=== PATIENT | female | born 1975 | race Caucasian/White ===

== ENCOUNTER → 2016-09-01 | Outpatient (CLI) | payer OTHER ==
[~2016-09-01] MED LIST: CLN200 PO; FOLI800T PO; MAGN400T6 PO; METO-157 PO; METO-478 PO; PANT40TA PO; RXC5 PO; TRAM-10 PO
--- NOTE | 2016-09-01 13:27 | MAMMOGRAPHY REPORT ---
BILATERAL DIGITAL SCREENING MAMMOGRAM TOMOSYNTHESIS WITH CAD: 09/01/2016 CLINICAL HISTORY: Routine screening. Patient has no complaints. TECHNIQUE: Breast tomosynthesis in addition to standard 2D mammography was performed. Current study was also evaluated with a Computer Aided Detection (CAD) system. COMPARISON: Comparison is made to exams dated: 09/01/2015 mammogram, 08/29/2014 mammogram, 08/28/2013 m ammogram, 08/21/2012 mammogram, 08/20/2011 mammogram, and 08/18/2010 mammogram - [facility]. BREAST COMPOSITION: The tissue of both breasts is extremely dense, which lowers the sensitivity of m ammography. FINDINGS: There is an 11 mm nodular asymmetry in the anterior slightly inferior left breast, only se en on the MLO view and corresponding tomosynthesis images (slice 26/57). Additional spot compression tomosynthesis views and possibly ultrasound are recommended, although this could represent overlappi ng tissue. No other suspicious mass, architectural distortion or cluster of microcalcifications is seen bilatera lly. IMPRESSION: ACR BI-RADS CATEGORY 0: INCOMPLETE EVALUATION: NEED ADDITIONAL IMAGING EVALUATION The 11 mm nodular asymmetry in the anterior left breast needs additional evaluation. The patient will be called to schedule an appointment. Approximately 10% of breast cancers are not detected with mammography. A negative mammographic report should not delay biopsy if a clinically suggestive mass is present. Rebekah Alonzo M.D. ay/:09/01/2016 12:15:37 Organizational Development Specialist: Ayah EDWARDS(Bekah)(Felipa), [facility] letter sent: Addl Imaging 0 BI-RADS Code: ACR BI-RADS Category 0: Incomplete Evaluation: Need Additional Imaging Evaluation
== END | disposition home or self-care (01) ==
LOC: C.MAMM 09:45
PROVIDERS: ATTEND Obstetrics & Gynecology
DX: Z12.31 Encounter for screening mammogram for malignant neoplasm of breast (principal); N64.89 Other specified disorders of breast

== ENCOUNTER → 2016-09-09 | Outpatient (CLI) | payer OTHER ==
[~2016-09-09] MED LIST changes: -METO-478 PO; +METO1TAB31 PO
--- NOTE | 2016-09-09 13:39 | MAMMOGRAPHY REPORT ---
UNILATERAL LEFT DIGITAL DIAGNOSTIC MAMMOGRAM TOMOSYNTHESIS: 09/09/2016 CLINICAL HISTORY: Callback from screening mammogram for left breast asymmetry. TECHNIQUE: Breast tomosynthesis in addition to standard 2D mammography was performed. Spot compress ion left MLO and ML 2-D and tomosynthesis images were obtained. COMPARISON: Comparison is made to exams dated: 09/01/2016 mammogram, 09/01/2015 mammogram, 08/29/2014 m ammogram, 08/28/2013 mammogram, 08/21/2012 mammogram, and 08/20/2011 mammogram - [facility]. BREAST COMPOSITION: The tissue of the left breast is extremely dense, which lowers the sensitivity o f mammography. FINDINGS: The previously described asymmetry seen within the anterior left breast on the MLO view ef faces to a baseline appearance on the additional views, with appearance of this region similar to mul tiple prior exams including the 2008 exam. This region has the appearance of normal fibroglandular t issue on the tomosynthesis images, without a discrete mammographic mass or architectural distortion n oted. Given the stability to prior exams, this finding is benign and compatible with normal fibrogla ndular tissue. IMPRESSION: ACR BI-RADS CATEGORY 2: BENIGN The left breast asymmetry effaces to a baseline appearance on the additional views, and is benign and compatible with normal fibroglandular tissue. There is no mammographic evidence of malignancy. A 1 year screening mammogram is recommended. The patient has been verbally notified of the results. Approximately 10% of breast cancers are not detected with mammography. A negative mammographic report should not delay biopsy if a clinically suggestive mass is present. Shirin García M.D. /:09/09/2016 11:29:41 Community Relations Director: Cintia EDWARDS(R)(M), [facility] letter sent: Normal 1/2 BI-RADS Code: ACR BI-RADS Category 2: Benign
== END | disposition home or self-care (01) ==
LOC: C.MAMM 11:02
PROVIDERS: ATTEND Obstetrics & Gynecology
DX: N64.89 Other specified disorders of breast (principal); R92.2 Inconclusive mammogram

== ENCOUNTER → 2017-02-25 | Outpatient (CLI) | payer OTHER ==
[~2017-02-25] MED LIST changes: +ETOD500T95 PO; +FOLI1TAB8 PO; +MCRK/10 PO; +METH2.5T PO; +METO-478 PO; -METO1TAB31 PO; +OMEP40CA41 PO; +ONDA4TAB46 PO; +TPRSR/25 PO
[2017-02-25 15:51] LABS: ALT/SGPT 20 U/L (12-78); BLOOD UREA NITROGEN 19 mg/dl (7-18); BUN/CREATININE RATIO 22.2 (10-20); CALCIUM 8.9 mg/dl (8.5-10.1); CARBON DIOXIDE 26 mmol/L (21-32); CHLORIDE 105 mmol/L (98-107); CHOLESTEROL 181 mg/dl (0-200); CREATININE 0.87 mg/dl (0.60-1.20); GLUCOSE 81 mg/dl (70-99); POTASSIUM 4.1 mmol/L (3.5-5.1); SODIUM 138 mmol/L (136-145); TRIGLYCERIDES 75 mg/dl (0-150); VERY LOW DENSITY LIPOPROT CALC 15 mg/dl
[2017-02-25 15:54] LABS: ALKALINE PHOSPHATASE 55 U/L (45-117); AST/SGOT 13 U/L (15-37); CHOLESTEROL/HDL RATIO 2.7; HDL CHOLESTEROL 66 mg/dl; LDL CHOLESTEROL CALCULATED 100 mg/dl
== END | disposition home or self-care (01) ==
LOC: C.LAB1850 14:35
PROVIDERS: ATTEND Physician Assistant
DX: Z13.220 Encounter for screening for lipoid disorders (principal); K31.84 Gastroparesis

== ENCOUNTER → 2017-03-02 | Day surgery (SDC) | payer OTHER ==
[2017-03-01 11:09] VITALS: BMI 26.0
[~2017-03-02] VITALS: Ht 170.2 cm; Wt 76.4 kg
[~2017-03-02] MED LIST changes: -CLN200 PO; -FOLI800T PO; +LIDOCAINE HCL 2% 2 ML VIAL (20MG/ML) ONE; -MAGN400T6 PO; -METO-157 PO; -METO-478 PO; -PANT40TA PO; +PROPOFOL IV EMULSION 10 MG/ML 20 ML VIAL IV ONE; -RXC5 PO; -TRAM-10 PO
[2017-03-02 13:35] VITALS: Ht 170.2 cm; Wt 76.4 kg
[2017-03-02 13:49] VITALS: TEMP 36.9
--- NOTE | 2017-03-02 14:00 | Endo History and Physical ---
History & Physical Date of Service: Mar 02, 2017. Chief Complaint: NAUSEA AND ABD PAIN Referring Physician: DR MAGAÑA History of Present Illness 41 yo CF who presents for EGD secondary to nausea and abdominal pain. Past Medical History Arthritis, Anxiety, Reflux, Depression Past Surgical History Hx Cardiac Surgery: No Hx Internal Defibrillator: No Hx Pacemaker: No Hx Abdominal Surgery: Yes (TUBAL LIGATION) Hx of Implantable Prosthesis: No Hx Post-Op Nausea and Vomiting: Yes Hx Cancer Surgery: No Hx Thoracic Surgery: No Hx Orthopedic: Yes (LUMBAR FUSION) Hx Urinary Tract Surgery: No Family History Colon CA, Polyp Social History Smoking Status: Former Smoker Hx Substance Use: No Hx Alcohol Use: Yes (OCCASIONALLY) Allergies Coded Allergies: Temazepam (Verified Adverse Reaction, Mild, HALLUCINATIONS UNAWARE OF ACTIVITIES, 03/02/17) Current Medications Reported Home Medications Medications Dose Route/Sig Max Daily Dose Days Date Category Zofran (Ondansetron HCl) 4 Mg Tab 4 Mg PO Q6H PRN 03/01/17 Reported Folvite (Folic Acid) 1 Mg Tab 1 Mg PO QAM 03/01/17 Reported Prilosec (Omeprazole) 40 Mg Cap 40 Mg PO QAM 03/01/17 Reported K-Tabs (Potassium Chloride) 10 Meq Tabcr 1 Tab PO QPM 03/01/17 Reported Etodolac 500 Mg Tab 1 Tab PO BID 03/01/17 Reported Metoprolol Succinate ER (Metoprolol Succinate) 25 Mg Tabcr 12.5 Mg PO BID 03/01/17 Reported Methotrexate 2.5 Mg Tab 6 Tab PO WK 03/01/17 Reported Vital Signs Weight (Kilograms): 76.36 Height (Feet): 5 Height (Inches): 7 Date Time Temp Pulse Resp B/P (MAP) Pulse Ox O2 Delivery O2 Flow Rate FiO2 03/02/17 13:49 36.9 63 16 100/68 (79) 98 Room Air Physical Exam General Appearance: WD/WN, no apparent distress Respiratory/Chest: Auscultation: breath sounds normal Cardiovascular: Heart Auscultation: RRR Abdomen: Bowel Sounds: normal Inspection & Palpation: soft, non-distended, no tenderness, guarding & rebound Assessment and Plan Assessment: 41 yo CF who presents for EGD secondary to nausea and abdominal pain. Plan: Proceed with EGD.
--- NOTE | 2017-03-02 14:26 | Discharge Instructions ---
Endoscopy Patient Instructions Date / Procedure(s) Performed Mar 02, 2017. EGD Allergy Information Coded Allergies: Temazepam (Verified Adverse Reaction, Mild, HALLUCINATIONS UNAWARE OF ACTIVITIES, 03/02/17) Discharge Date / Findings Mar 02, 2017. Hiatal hernia Mid-esophageal biopsies Gastric antrum biopsies Medication Instructions OK to resume all medications today as prescribed Reported Home Medications Medications Dose Route/Sig Max Daily Dose Days Date Category Zofran (Ondansetron HCl) 4 Mg Tab 4 Mg PO Q6H PRN 03/01/17 Reported Folvite (Folic Acid) 1 Mg Tab 1 Mg PO QAM 03/01/17 Reported Prilosec (Omeprazole) 40 Mg Cap 40 Mg PO QAM 03/01/17 Reported K-Tabs (Potassium Chloride) 10 Meq Tabcr 1 Tab PO QPM 03/01/17 Reported Etodolac 500 Mg Tab 1 Tab PO BID 03/01/17 Reported Metoprolol Succinate ER (Metoprolol Succinate) 25 Mg Tabcr 12.5 Mg PO BID 03/01/17 Reported Methotrexate 2.5 Mg Tab 6 Tab PO WK 03/01/17 Reported Provider Instructions Activity Restrictions - No exercising or heavy lifting for 24 hours. - Do not drink alcohol the day of the procedure. - Do not drive a car or operate machinery until the day after the procedure. - Do not make any important decisions or sign important papers in 24 hours after the procedure. Following Day: - Return to full activity which may include returning to work/school. Diet Start your diet with liquids and light foods (jello, soup, juice, toast). Then eat your usual diet if not nauseated. Treatment For Common After Affects For mild abdominal pain, bloating, or excessive gas: - Rest - Eat lightly - Lie on right side Follow-Up Information Follow-up with DR MAGAÑA as scheduled Anesthesia Information What You Should Know You have had a procedure that required some medicine to reduce anxiety and discomfort. This treatment is called moderate sedation. After receiving the treatment, you may be sleepy, but you will be able to breathe on your own. The effects of the treatment may last for several hours. Follow these instructions along with Activity/Diet recommendations noted above: * Do NOT do anything where dizziness or clumsiness would be dangerous. * Rest quietly at home today, then you can be up and about tomorrow. * Have a responsible person stay with you the rest of today. * You may have had an I.V. today. If so, you may take the dressing off later today. Recommendations Call your doctor if: * Trouble breathing * Continuous vomiting for more than 24 hours * Temperature above 101 degrees * Severe abdominal pain or bloating * Pain not relieved by pain medicine ordered * There is increased drainage or redness from any incision * A large amount of rectal bleeding greater than 2-3 tablespoons. (If you had a polyp/s removed or have hemorrhoids, a small amount of blood - from the rectum is to be expected.) * You have any unanswered questions or concerns. IN THE EVENT OF A SERIOUS EMERGENCY, GO TO THE NEAREST EMERGENCY ROOM Your discharge instructions were prepared by provider Javi Armando. Patient Instructions Signature Page Caroline Cope Patient (or Guardian) Signature/Date: I have read and understand the instructions given to me by my caregivers. Caregiver/RN/Doctor Signature/Date: The above-named patient and/or guardian has received patient instructions on this date. + Original Patient Signature Page (only) stays with chart. Please make copy for patient.
--- NOTE | 2017-03-02 14:31 | GI REPORT ---
Procedure Date: 03/02/2017 2:19 PM Procedure: Upper GI endoscopy Indications: Epigastric abdominal pain Medicines: Monitored Anesthesia Care Complications: No immediate complications. Estimated Blood Loss: Estimated blood loss: none. Procedure: Pre-Anesthesia Assessment: - Prior to the procedure, a History and Physical was performed, and patient medications and allergies were reviewed. The patient's tolerance of previous anesthesia was also reviewed. The risks and benefits of the procedure and the sedation options and risks were discussed with the patient. All questions were answered, and informed consent was obtained. Prior Anticoagulants: The patient has taken no previous anticoagulant or antiplatelet agents. ASA Grade Assessment: II - A patient with mild systemic disease. After reviewing the risks and benefits, the patient was deemed in satisfactory condition to undergo the procedure. After obtaining informed consent, the endoscope was passed under direct vision. Throughout the procedure, the patient's blood pressure, pulse, and oxygen saturations were monitored continuously. The scope was introduced through the mouth, and advanced to the second part of duodenum. The upper GI endoscopy was accomplished without difficulty. The patient tolerated the procedure well. Findings: The examined esophagus was normal. Two biopsies were obtained in the middle third of the esophagus with cold forceps for histology. A small hiatus hernia was present. Biopsies were taken with a cold forceps in the gastric antrum for Helicobacter pylori testing. The examined duodenum was normal. Impression: - Normal esophagus. - Small hiatus hernia. - Normal examined duodenum. - Two biopsies were obtained in the middle third of the esophagus. - Biopsies were taken with a cold forceps for Helicobacter pylori testing. Recommendation: - Resume previous diet. - Continue present medications. - Await pathology results. - Return to primary care physician as previously scheduled. Javi Armando DO 03/02/2017 2:31:07 PM This report has been signed electronically. Note Initiated On: 03/02/2017 2:19 PM I attest to the content of the Intraoperative Record and orders documented therein, exceptions below
[2017-03-02 14:58] VITALS: BP 126/72; PULSE 62; O2SAT 100
--- NOTE | 2017-03-02 15:05 | Anesthesiology Progress Note ---
Anesthesia Post Op Note Date & Time Mar 02, 2017 at 15:05 Vital Signs Pain Intensity: 0 Vital Signs Past 12 Hours Date Time Temp Pulse Resp B/P (MAP) Pulse Ox O2 Delivery O2 Flow Rate FiO2 03/02/17 14:58 62 16 126/72 (90) 100 Room Air 03/02/17 14:43 63 16 102/70 (81) 99 Room Air 03/02/17 14:28 73 16 88/55 (66) 99 Room Air 03/02/17 13:49 36.9 63 16 100/68 (79) 98 Room Air Notes Mental Status: alert / awake / arousable, participated in evaluation Pt Amnestic to Procedure: Yes Nausea / Vomiting: adequately controlled Pain: adequately controlled Airway Patency, RR, SpO2: stable & adequate BP & HR: stable & adequate Hydration State: stable & adequate Anesthetic Complications: no major complications apparent
== END | disposition home or self-care (01) ==
LOC: C.GI 13:04
PROVIDERS: ATTEND Internal Medicine
DX: R10.13 Epigastric pain (principal); K44.9 Diaphragmatic hernia without obstruction or gangrene; K21.9 Gastro-esophageal reflux disease without esophagitis; Z98.51 Tubal ligation status; Z80.0 Family history of malignant neoplasm of digestive organs; Z87.891 Personal history of nicotine dependence

== ENCOUNTER → 2017-04-13 | Outpatient (CLI) | payer OTHER ==
[~2017-04-13] MED LIST changes: -LIDOCAINE HCL 2% 2 ML VIAL (20MG/ML) ONE; -PROPOFOL IV EMULSION 10 MG/ML 20 ML VIAL IV ONE
[2017-04-13 12:08] LABS: BASO % 0.5 %; BASO ABS # 0.02 K/uL (0-0.2); EOS % 2.7 %; EOS ABS # 0.12 K/uL (0-0.5); HEMATOCRIT 39.1 % (37-47); HEMOGLOBIN 13.3 g/dL (12.0-16.0); IG# 0.01 K/uL (0.00-0.02); LYMPH % 32.4 %; LYMPH ABS # 1.44 K/uL (1.2-3.4); MEAN CELL VOLUME 100.8 fL (80-100); MEAN CORPUSCULAR HEMOGLOBIN 34.3 pg (25-34); MEAN PLATELET VOLUME 11.4 fL (7.4-10.4); MONO % 8.6 %; MONO ABS # 0.38 K/uL (0.11-0.59); NEUT % 55.6 %; NEUT ABS # 2.47 K/uL (1.4-6.5); PLATELET COUNT 203 K/uL (130-400); RED CELL DISTRIBUTION WIDTH CV 13.1 % (11.5-14.5); RED CELL DISTRIBUTION WIDTH SD 47.4 fL (36.4-46.3); WHITE BLOOD COUNT 4.44 K/uL (4.8-10.8)
[2017-04-13 12:27] LABS: ALBUMIN 3.4 gm/dl (3.4-5.0); ALT/SGPT 15 U/L (12-78); BLOOD UREA NITROGEN 28 mg/dl (7-18); CALCIUM 9.3 mg/dl (8.5-10.1); CARBON DIOXIDE 28 mmol/L (21-32); CREATININE 0.85 mg/dl (0.60-1.20); GLUCOSE 101 mg/dl (70-99); POTASSIUM 4.3 mmol/L (3.5-5.1); SODIUM 142 mmol/L (136-145)
[2017-04-13 12:38] LABS: ALKALINE PHOSPHATASE 44 U/L (45-117); AST/SGOT 12 U/L (15-37); TOTAL PROTEIN 7.3 gm/dl (6.4-8.2)
== END | disposition home or self-care (01) ==
LOC: C.LAB1850 09:56
PROVIDERS: ATTEND Internal Medicine
DX: R53.83 Other fatigue (principal); K31.84 Gastroparesis

== ENCOUNTER → 2017-04-14 | Outpatient (CLI) | payer OTHER | END | disposition home or self-care (01) | LOC: C.LAB1850 09:40 | PROVIDERS: ATTEND Physician Assistant | DX: R10.9 Unspecified abdominal pain (principal) ==

== ENCOUNTER 2017-05-26 14:29 | Emergency (ER) | payer OTHER ==
[~2017-05-26] VITALS: Ht 170.2 cm; Wt 71.4 kg
[2017-05-26 14:31] VITALS: TEMP 36.8; Ht 170.2 cm; Wt 71.4 kg
[2017-05-26] MEDS ORDERED: SODIUM CHLORIDE 0.9% 1000ML 1,000 ML IV STA (14:44)
[2017-05-26] MEDS ORDERED: ASPIRIN 81 MG CHEW PO STA (14:44)
--- NOTE | 2017-05-26 15:00 | EMERGENCY ROOM VISIT NOTE ---
History Report prepared by Lu: Jorge Akbar Under the Supervision of: Dr. Checo Crouch M.D. First contact with patient: 14:40 Chief Complaint: CHEST PAIN Stated Complaint: NUMBNESS IN LEFT ARM, CHEST PRESSURE, DIZZY Nursing Triage Summary: Pt states, "I've been having tingling and pain in my left arm for the past few hours. I'm nauseated and lightheaded. I have tightness in my chest, like a weight." History of Present Illness The patient is a 41 year old female who presents to the Emergency Room with complaints of constant chest pressure starting around 1130 this morning while reading. She currently rates the pain as a 4/10 in severity. The patient states that she is also having some numbness and tingling in the left side of her face and her left arm. She reports that she is also feeling light headed, short of breath, and nauseous, and feeling like the room is spinning. The patient states that she did not pass out or hit her head. She notes that she has a chronic cough, and she has not been coughing up any blood. She denies any blood in her urine, blood in her stools, recent travel or long car rides, using control , and using other hormones. The patient denies any recent stress, any chance of , history of HLD, HTN, and DM. She has a history of rheumatoid arthritis, gastroparesis, eosinophilic esophagitis, and a tubal ligation. She has a family history of heart disease, heart attacks, and arrhythmias. The patient states that she is a former smoker 12 years ago. Source of History: patient Onset: 1130 Position: chest Quality: pressure Timing: constant Associated Symptoms: + SOB, + nausea, + numbness Note: Associated symptoms: Light headed. Review of Systems See HPI for pertinent positives and negatives. A total of ten systems were reviewed and were otherwise negative. Past Medical & Surgical Medical Problems: (1) Diaphragmatic Hernia (2) Diverticulosis Colon (W/O Ment Of Hemorrhage) (3) Esophageal Reflux (4) Lumbar stenosis with neurogenic claudication (5) Polycystic Ovaries (6) Rheumatoid Arthritis Family History Cancer Diabetes mellitus Gallbladder disease Heart disease Hypertension Seizures Social History Smoking Status: Former Smoker Alcohol Use: occasionally Marital Status: Housing Status: lives with family Occupation Status: unemployed Current/Historical Medications Scheduled Etodolac (Etodolac), 1 TAB PO BID Folic Acid (Folvite), 1 MG PO QAM Methotrexate (Methotrexate), 6 TAB PO WK Metoprolol Succinate (Metoprolol Succinate ER), 12.5 MG PO BID Omeprazole (Prilosec), 40 MG PO QAM Potassium Chloride (K-Tabs), 1 TAB PO QPM Scheduled PRN Ondansetron Hcl (Zofran), 4 MG PO Q6H PRN for Nausea Allergies Coded Allergies: Temazepam (Verified Adverse Reaction, Mild, HALLUCINATIONS UNAWARE OF ACTIVITIES, 03/02/17) Physical Exam Vital Signs Date Time Temp Pulse Resp B/P (MAP) Pulse Ox O2 Delivery O2 Flow Rate FiO2 05/26/17 19:09 69 18 107/67 96 Room Air 05/26/17 18:31 69 18 96/70 98 Room Air 05/26/17 17:01 65 05/26/17 16:00 72 18 99/67 98 Room Air 05/26/17 15:18 61 05/26/17 15:10 95 Room Air 05/26/17 15:10 95 Room Air 05/26/17 14:31 36.8 88 18 125/85 98 Room Air Physical Exam Physical Exam GENERAL: She is oriented to person, place, and time. She appears well- developed and well-nourished. She does not appear distressed. ____ HENT: Exam performed. Head: Normocephalic and atraumatic. Right Ear: External ear normal. No mastoid tenderness. Left Ear: External ear normal. No mastoid tenderness. Mouth/Throat: The oropharynx is clear and moist. No trismus in the jaw. No dental abscesses or uvula swelling. No oropharyngeal exudate or tonsillar abscesses. ____ EYES: Conjunctivae and EOM are normal. Pupils are equal, round, and reactive to light. Right eye exhibits no discharge. Left eye exhibits no discharge. No scleral icterus. ____ NECK: Normal range of motion. Neck supple. No JVD present. No spinous process tenderness present. No carotid bruit present. No rigidity. No tracheal deviation and normal range of motion present. No Brudzinski's sign and no Kernig 's sign noted. ____ CV: Normal rate, regular rhythm, normal heart sounds and intact distal pulses. There is no peripheral edema. Palpable radial pulses bue. ____ PULM/CHEST: Effort normal and breath sounds normal. No respiratory distress. No stridor. She has no wheezes. She has no rales. Chest Wall: She exhibits no tenderness. ____ ABD: The abdomen is soft. Bowel sounds are normal. She has no distension. No mass is present. There is no tenderness. There is no rebound, no guarding, no Garcia's sign and no tenderness at McBurney's point. Rovsig negative MUSC/SKEL: Normal range of motion. There is no peripheral edema, tenderness or deformity. LYMPH: No cervical adenopathy. ____ NEURO: She is alert and oriented to person, place, and time. She has normal strength. No cranial nerve deficit or sensory deficit. Coordination and gait normal. GCS eye subscore is 4. GCS verbal subscore is 5. GCS motor subscore is 6. Cerebellar tests wnl. ____ SKIN: Skin is warm and dry. She is not diaphoretic. ____ PSYCH: She has a normal mood and affect. Her behavior is normal. Judgment and thought content normal. ____ Medical Decision & Procedures ER Provider Diagnostic Interpretation: Radiology results as stated below per my review and radiologist interpretation: CHEST 2 VIEWS ROUTINE HISTORY: 41 years-old Female cp acute atypical chest pain COMPARISON: Chest radiograph 03/15/2015 TECHNIQUE: PA and lateral views of the chest FINDINGS: The cardiomediastinal and hilar silhouettes are within normal limits. Hazy opacity of the medial right lung base on the frontal view is not appreciated on the lateral view likely secondary to composite tissue density. No pneumothorax, pleural effusion or overt pulmonary edema. Bones of the chest are grossly intact. IMPRESSION: Hazy opacity of the medial right lung base on the frontal view is not appreciated on the lateral view and is secondary to composite tissue density with airspace disease thought to be less likely. The lungs otherwise appear clear. The above report was generated using voice recognition software. It may contain grammatical, syntax or spelling errors. Electronically signed by: Roosevelt Jeffries M.D. 05/26/2017 3:46 PM Dictated Date/Time: 05/26/2017 3:44 PM Laboratory Results 05/26/17 15:10 Red Blood Count 4.08, Mean Corpuscular Volume 99.3, Mean Corpuscular Hemoglobin 34.6, Mean Corpuscular Hemoglobin Concent 34.8, Mean Platelet Volume 11.2, Neutrophils (%) (Auto) 72.5, Lymphocytes (%) (Auto) 20.8, Monocytes (%) (Auto) 5.6, Eosinophils (%) (Auto) 0.7, Basophils (%) (Auto) 0.2, Neutrophils # (Auto) 6.95, Lymphocytes # (Auto) 2.00, Monocytes # (Auto) 0.54, Eosinophils # (Auto) 0.07, Basophils # (Auto) 0.02 05/26/17 15:10 Test 05/26/17 15:10 05/26/17 18:11 White Blood Count 9.60 K/uL (4.8-10.8) Red Blood Count 4.08 M/uL (4.2-5.4) Hemoglobin 14.1 g/dL (12.0-16.0) Hematocrit 40.5 % (37-47) Mean Corpuscular Volume 99.3 fL (80-100) Mean Corpuscular Hemoglobin 34.6 pg (25-34) Mean Corpuscular Hemoglobin Concent 34.8 g/dl (32-36) Platelet Count 193 K/uL (130-400) Mean Platelet Volume 11.2 fL (7.4-10.4) Neutrophils (%) (Auto) 72.5 % Lymphocytes (%) (Auto) 20.8 % Monocytes (%) (Auto) 5.6 % Eosinophils (%) (Auto) 0.7 % Basophils (%) (Auto) 0.2 % Neutrophils # (Auto) 6.95 K/uL (1.4-6.5) Lymphocytes # (Auto) 2.00 K/uL (1.2-3.4) Monocytes # (Auto) 0.54 K/uL (0.11-0.59) Eosinophils # (Auto) 0.07 K/uL (0-0.5) Basophils # (Auto) 0.02 K/uL (0-0.2) RDW Standard Deviation 46.3 fL (36.4-46.3) RDW Coefficient of Variation 12.9 % (11.5-14.5) Immature Granulocyte % (Auto) 0.2 % Immature Granulocyte # (Auto) 0.02 K/uL (0.00-0.02) Prothrombin Time 10.7 SECONDS (9.0-12.0) Prothromb Time International Ratio 1.0 (0.9-1.1) Activated Partial Thromboplast Time 25.9 SECONDS (21.0-31.0) Partial Thromboplastin Ratio 1.0 D-Dimer 290 ug/L FEU (0-500) Anion Gap 7.0 mmol/L (3-11) Est Creatinine Clear Calc Drug Dose 70.6 ml/min Estimated GFR () 79.9 Estimated GFR (Non- 69.0 BUN/Creatinine Ratio 22.1 (10-20) Calcium Level 9.0 mg/dl (8.5-10.1) Troponin I < 0.015 ng/ml (0-0.045) Laboratory results reviewed by me Medications Administered Medications (Trade) Dose Ordered Sig/Jud Route Start Time Stop Time Status Last Admin Dose Admin Aspirin (Aspirin Chew) 324 mg NOW STAT PO 05/26/17 14:44 05/26/17 14:48 DC 05/26/17 15:07 324 MG Sodium Chloride 1,000 ml @ 999 mls/hr Q1H1M STAT IV 05/26/17 14:44 05/26/17 15:44 DC 05/26/17 15:07 999 MLS/HR ECG Per My Interpretation Indication: chest pain Rate (beats per minute): 79 Rhythm: sinus with SA Findings: other (MO, QRS, Qtc are within normal limits. No ST elevation or ST depression.) ED Course 1440: The patient was evaluated in room C8. A complete history and physical exam was performed. 1444: Sodium Chloride 1000 ml @ 999 mls/hr IV, aspirin 423mg PO 1620: I reevaluated the patient, and her chest pain "is basically gone. It's a 1 /10" Labs and imaging within normal limits including repeat troponin. 1634: I spoke to Dr. Cornejo - Cardiology, and he reviewed the patient's record, and the patient had an stress echo done in 2016 which was wnl. Given that the EKG, troponins, and stress test test were negative, the patient will be discharged. She was agreeable to the plan. DISCHARGE - Plan of care discussed with patient and questions answered. The patient was given both verbal and printed discharge instructions. The patient verbalized understanding and ability to comply. The patient is to seek outpatient follow up as noted in the discharge instructions. The patient verbalized understanding and ability to comply. The patient is discharged in stable condition. The patient was instructed to return for worsening symptoms. Medical Decision EKG labs including 2 sets of troponins as well as d-dimer and chest x-ray within normal limits. DC with follow-up cardiology.DISCHARGE - Plan of care discussed with patient and questions answered. The patient was given both verbal and printed discharge instructions. The patient verbalized understanding and ability to comply. The patient is to seek outpatient follow up as noted in the discharge instructions. The patient verbalized understanding and ability to comply. The patient is discharged in stable condition. The patient was instructed to return for worsening symptoms. Medication Reconcilliation Current Medication List: was personally reviewed by me Blood Pressure Screening Patient's blood pressure: Normal blood pressure Impression Primary Impression: Chest pain, unspecified Scribe Attestation The scribe's documentation has been prepared under my direction and personally reviewed by me in its entirety. I confirm that the note above accurately reflects all work, treatment, procedures, and medical decision making performed by me. The chart was completed utilizing [employer] Speech voice recognition software. Grammatical errors, random word insertions, pronoun errors, and incomplete sentences are an occasional consequence of this system due to software limitations, ambient noise, and hardware issues. Any formal questions or concerns about the content, text, or information contained within the body of this dictation should be directly addressed to the physician for clarification. Departure Information Dispostion Home / Self-Care Referrals RV. Armenta MD (PCP) Forms Call Back Authorization, HOME CARE DOCUMENTATION FORM, IMPORTANT VISIT INFORMATION Patient Instructions Chest Pain - [facility]
[2017-05-26 15:10] VITALS: O2SAT 95
[2017-05-26 15:16] LABS: BASO % 0.2 %; BASO ABS # 0.02 K/uL (0-0.2); EOS % 0.7 %; EOS ABS # 0.07 K/uL (0-0.5); HEMATOCRIT 40.5 % (37-47); HEMOGLOBIN 14.1 g/dL (12.0-16.0); IG# 0.02 K/uL (0.00-0.02); LYMPH % 20.8 %; MEAN CELL VOLUME 99.3 fL (80-100); MEAN CORPUSCULAR HEMOGLOBIN 34.6 pg (25-34); MEAN CORPUSCULAR HGB CONC 34.8 g/dl (32-36); MEAN PLATELET VOLUME 11.2 fL (7.4-10.4); MONO % 5.6 %; MONO ABS # 0.54 K/uL (0.11-0.59); NEUT % 72.5 %; NEUT ABS # 6.95 K/uL (1.4-6.5); PLATELET COUNT 193 K/uL (130-400); RED CELL DISTRIBUTION WIDTH CV 12.9 % (11.5-14.5); RED CELL DISTRIBUTION WIDTH SD 46.3 fL (36.4-46.3)
[2017-05-26 15:34] LABS: BLOOD UREA NITROGEN 22 mg/dl (7-18); CARBON DIOXIDE 24 mmol/L (21-32); GLUCOSE 92 mg/dl (70-99); POTASSIUM 3.9 mmol/L (3.5-5.1); SODIUM 138 mmol/L (136-145)
[2017-05-26 15:46] LABS: PTT PATIENT 25.9 SECONDS (21.0-31.0)
--- NOTE | 2017-05-26 15:47 | DIAGNOSTIC IMAGING REPORT ---
CHEST 2 VIEWS ROUTINE HISTORY: 41 years-old Female cp acute atypical chest pain COMPARISON: Chest radiograph 03/15/2015 TECHNIQUE: PA and lateral views of the chest FINDINGS: The cardiomediastinal and hilar silhouettes are within normal limits. Hazy opacity of the medial right lung base on the frontal view is not appreciated on the lateral view likely secondary to composite tissue density. No pneumothorax, pleural effusion or overt pulmonary edema. Bones of the chest are grossly intact. IMPRESSION: Hazy opacity of the medial right lung base on the frontal view is not appreciated on the lateral view and is secondary to composite tissue density with airspace disease thought to be less likely. The lungs otherwise appear clear. The above report was generated using voice recognition software. It may contain grammatical, syntax or spelling errors. Electronically signed by: Roosevelt Jeffries M.D. 05/26/2017 3:46 PM Dictated Date/Time: 05/26/2017 3:44 PM
[2017-05-26 19:09] VITALS: BP 107/67; PULSE 69; O2SAT 96
== END 2017-05-26 19:24 | disposition home or self-care (01) ==
LOC: C.EDB 14:30 → C.EDC 19:24
DX: R07.9 Chest pain, unspecified (principal); M06.9 Rheumatoid arthritis, unspecified; K31.84 Gastroparesis; Z98.51 Tubal ligation status; Z87.891 Personal history of nicotine dependence; K21.9 Gastro-esophageal reflux disease without esophagitis; Z80.9 Family history of malignant neoplasm, unspecified; Z83.3 Family history of diabetes mellitus; Z82.49 Family history of ischemic heart disease and other diseases of the circulatory system; Z82.0 Family history of epilepsy and other diseases of the nervous system; Z79.899 Other long term (current) drug therapy; Z88.8 Allergy status to other drugs, medicaments and biological substances

== ENCOUNTER → 2017-06-09 | Outpatient (CLI) | payer OTHER ==
[2017-06-09 12:58] LABS: BLOOD UREA NITROGEN 24 mg/dl (7-18); CALCIUM 9.1 mg/dl (8.5-10.1); CARBON DIOXIDE 26 mmol/L (21-32); CREATININE 0.94 mg/dl (0.60-1.20); GLUCOSE 93 mg/dl (70-99); POTASSIUM 3.8 mmol/L (3.5-5.1); SODIUM 140 mmol/L (136-145)
== END | disposition home or self-care (01) ==
LOC: C.LAB1850 09:38
PROVIDERS: ATTEND Internal Medicine
DX: R25.2 Cramp and spasm (principal)

== ENCOUNTER → 2017-07-12 | Day surgery (SDC) | payer OTHER ==
[2017-07-05 11:25] VITALS: Ht 171.5 cm; Wt 70.5 kg
[~2017-07-12] VITALS: Ht 171.5 cm; Wt 70.5 kg
[~2017-07-12] MED LIST changes: +CLR10 PO; +LIDOCAINE HCL 2% 2 ML VIAL (20MG/ML) ONE; +MULTTAB58 PO; +PROPOFOL IV EMULSION 10 MG/ML 20 ML VIAL IV ONE; +SODIUM CHLORIDE 0.9% 500ML 500 ML IV ONE
--- NOTE | 2017-07-12 09:41 | Endo History and Physical ---
History & Physical Date of Service: Jul 12, 2017. Chief Complaint: Easinophilic esophagitis Referring Physician: Dr. Armenta History of Present Illness 41 yo CF who presents for EGD secondary to Eosinophilic esophagitis. Past Medical History Arthritis, Anxiety, Reflux, Depression Past Surgical History Hx Cardiac Surgery: No Hx Internal Defibrillator: No Hx Pacemaker: No Hx Abdominal Surgery: Yes (TUBAL LIGATION) Hx Post-Op Nausea and Vomiting: Yes Hx Cancer Surgery: No Hx Thoracic Surgery: No Hx Orthopedic: Yes (LUMBAR FUSION) Hx Urinary Tract Surgery: No Family History Colon CA, Polyp Social History Smoking Status: Former Smoker Hx Substance Use: No Hx Alcohol Use: Yes (OCCASIONALLY) Allergies Coded Allergies: Temazepam (Verified Adverse Reaction, Mild, HALLUCINATIONS UNAWARE OF ACTIVITIES, 07/05/17) Current Medications Reported Home Medications Medications Dose Route/Sig Max Daily Dose Days Date Category Dose Instructions Multivitamin (Multiple Vitamin) 1 Tab Tab 1 Tab PO DAILY 90 07/05/17 Reported Claritin (Loratadine) 10 Mg Tab 10 Mg PO DAILY 07/05/17 Reported Zofran (Ondansetron HCl) 4 Mg Tab 4 Mg PO Q6H PRN 03/01/17 Reported Folvite (Folic Acid) 1 Mg Tab 1 Mg PO QAM 03/01/17 Reported Prilosec (Omeprazole) 40 Mg Cap 40 Mg PO BID 03/01/17 Reported K-Tabs (Potassium Chloride) 10 Meq Tabcr 1 Tab PO QPM 03/01/17 Reported Etodolac 500 Mg Tab 1 Tab PO BID 03/01/17 Reported Metoprolol Succinate ER (Metoprolol Succinate) 25 Mg Tabcr 12.5 Mg PO BID 03/01/17 Reported Methotrexate 2.5 Mg Tab 6 Tab PO WK 03/01/17 Reported TAKES 6 TABLETS ON TUESDAY Vital Signs Weight (Kilograms): 70.45 Height (Feet): 5 Height (Inches): 7.5 Date Time Temp Pulse Resp B/P (MAP) Pulse Ox O2 Delivery O2 Flow Rate FiO2 07/12/17 09:32 36.7 69 18 101/72 (82) 98 Room Air Physical Exam General Appearance: WD/WN, no apparent distress Respiratory/Chest: Auscultation: breath sounds normal Cardiovascular: Heart Auscultation: RRR Abdomen: Bowel Sounds: normal Inspection & Palpation: soft, non-distended, no tenderness, guarding & rebound Assessment and Plan Assessment: 41 yo CF who presents for EGD secondary to Eosinophilic esophagitis. Plan: Proceed with EGD.
--- NOTE | 2017-07-12 10:32 | Anesthesiology Progress Note ---
Anesthesia Post Op Note Date & Time Jul 12, 2017 at 10:32 Vital Signs Pain Intensity: 4 Vital Signs Past 12 Hours Date Time Temp Pulse Resp B/P (MAP) Pulse Ox O2 Delivery O2 Flow Rate FiO2 07/12/17 09:32 36.7 69 18 101/72 (82) 98 Room Air Notes Mental Status: alert / awake / arousable, participated in evaluation Pt Amnestic to Procedure: Yes Nausea / Vomiting: adequately controlled Pain: adequately controlled Airway Patency, RR, SpO2: stable & adequate BP & HR: stable & adequate Hydration State: stable & adequate Anesthetic Complications: no major complications apparent
--- NOTE | 2017-07-12 10:41 | Discharge Instructions ---
Endoscopy Patient Instructions Date / Procedure(s) Performed Jul 12, 2017. EGD Allergy Information Coded Allergies: Temazepam (Verified Adverse Reaction, Mild, HALLUCINATIONS UNAWARE OF ACTIVITIES, 07/05/17) Discharge Date / Findings Jul 12, 2017. Eosinophilic esophagitis s/p dilation and biopsies Medication Instructions Stopped Medication(s): Patient was told to hold everything this am. OK to resume all medications today as prescribed Reported Home Medications Medications Dose Route/Sig Max Daily Dose Days Date Category Dose Instructions Multivitamin (Multiple Vitamin) 1 Tab Tab 1 Tab PO DAILY 90 07/05/17 Reported Claritin (Loratadine) 10 Mg Tab 10 Mg PO DAILY 07/05/17 Reported Zofran (Ondansetron HCl) 4 Mg Tab 4 Mg PO Q6H PRN 03/01/17 Reported Folvite (Folic Acid) 1 Mg Tab 1 Mg PO QAM 03/01/17 Reported Prilosec (Omeprazole) 40 Mg Cap 40 Mg PO BID 03/01/17 Reported K-Tabs (Potassium Chloride) 10 Meq Tabcr 1 Tab PO QPM 03/01/17 Reported Etodolac 500 Mg Tab 1 Tab PO BID 03/01/17 Reported Metoprolol Succinate ER (Metoprolol Succinate) 25 Mg Tabcr 12.5 Mg PO BID 03/01/17 Reported Methotrexate 2.5 Mg Tab 6 Tab PO WK 03/01/17 Reported TAKES 6 TABLETS ON TUESDAY Provider Instructions Activity Restrictions - No exercising or heavy lifting for 24 hours. - Do not drink alcohol the day of the procedure. - Do not drive a car or operate machinery until the day after the procedure. - Do not make any important decisions or sign important papers in 24 hours after the procedure. Following Day: - Return to full activity which may include returning to work/school. Diet Start your diet with liquids and light foods (jello, soup, juice, toast). Then eat your usual diet if not nauseated. Treatment For Common After Affects For mild abdominal pain, bloating, or excessive gas: - Rest - Eat lightly - Lie on right side Follow-Up Information Follow-up with Dr. Armenta as scheduled Anesthesia Information What You Should Know You have had a procedure that required some medicine to reduce anxiety and discomfort. This treatment is called moderate sedation. After receiving the treatment, you may be sleepy, but you will be able to breathe on your own. The effects of the treatment may last for several hours. Follow these instructions along with Activity/Diet recommendations noted above: * Do NOT do anything where dizziness or clumsiness would be dangerous. * Rest quietly at home today, then you can be up and about tomorrow. * Have a responsible person stay with you the rest of today. * You may have had an I.V. today. If so, you may take the dressing off later today. Recommendations Call your doctor if: * Trouble breathing * Continuous vomiting for more than 24 hours * Temperature above 101 degrees * Severe abdominal pain or bloating * Pain not relieved by pain medicine ordered * There is increased drainage or redness from any incision * A large amount of rectal bleeding greater than 2-3 tablespoons. (If you had a polyp/s removed or have hemorrhoids, a small amount of blood - from the rectum is to be expected.) * You have any unanswered questions or concerns. IN THE EVENT OF A SERIOUS EMERGENCY, GO TO THE NEAREST EMERGENCY ROOM Your discharge instructions were prepared by provider Javi Armando. Patient Instructions Signature Page Caroline Cope Patient (or Guardian) Signature/Date: I have read and understand the instructions given to me by my caregivers. Caregiver/RN/Doctor Signature/Date: The above-named patient and/or guardian has received patient instructions on this date. + Original Patient Signature Page (only) stays with chart. Please make copy for patient.
--- NOTE | 2017-07-12 10:48 | GI REPORT ---
Procedure Date: 07/12/2017 10:07 AM Procedure: Upper GI endoscopy Indications: Follow-up of eosinophilic esophagitis Medicines: Monitored Anesthesia Care Complications: No immediate complications. Estimated Blood Loss: Estimated blood loss: none. Procedure: Pre-Anesthesia Assessment: - Prior to the procedure, a History and Physical was performed, and patient medications and allergies were reviewed. The patient's tolerance of previous anesthesia was also reviewed. The risks and benefits of the procedure and the sedation options and risks were discussed with the patient. All questions were answered, and informed consent was obtained. Prior Anticoagulants: The patient has taken no previous anticoagulant or antiplatelet agents. ASA Grade Assessment: II - A patient with mild systemic disease. After reviewing the risks and benefits, the patient was deemed in satisfactory condition to undergo the procedure. After obtaining informed consent, the endoscope was passed under direct vision. Throughout the procedure, the patient's blood pressure, pulse, and oxygen saturations were monitored continuously. The scope was introduced through the mouth, and advanced to the second part of duodenum. The upper GI endoscopy was accomplished without difficulty. The patient tolerated the procedure well. Findings: Mucosal changes including longitudinal furrows were found in the entire esophagus. A guidewire was placed and the scope was withdrawn. Dilation was performed with a Savary dilator with mild resistance at 48 Fr. The dilation site was examined and showed no change. Biopsies were taken with a cold forceps for histology. The stomach was normal. The examined duodenum was normal. Impression: - Esophageal mucosal changes secondary to eosinophilic esophagitis. Dilated. Biopsied. - Normal stomach. - Normal examined duodenum. Recommendation: - Resume previous diet. - Continue present medications. - Await pathology results. - Return to primary care physician as previously scheduled. Javi Armando, DO 07/12/2017 10:47:49 AM This report has been signed electronically. Note Initiated On: 07/12/2017 10:07 AM I attest to the content of the Intraoperative Record and orders documented therein, exceptions below
[2017-07-12 10:55] VITALS: BP 111/72; PULSE 50; O2SAT 100
== END | disposition home or self-care (01) ==
LOC: C.GI 09:03
PROVIDERS: ATTEND Internal Medicine
DX: Z09 Encounter for follow-up examination after completed treatment for conditions other than malignant neoplasm (principal); K20.0 Eosinophilic esophagitis; Z80.0 Family history of malignant neoplasm of digestive organs; Z79.899 Other long term (current) drug therapy

== ENCOUNTER → 2017-08-11 | Outpatient (CLI) | payer OTHER ==
[~2017-08-11] MED LIST changes: -LIDOCAINE HCL 2% 2 ML VIAL (20MG/ML) ONE; -PROPOFOL IV EMULSION 10 MG/ML 20 ML VIAL IV ONE; -SODIUM CHLORIDE 0.9% 500ML 500 ML IV ONE
== END | disposition home or self-care (01) ==
LOC: C.PATHSPEC 17:21
PROVIDERS: ATTEND Dentist Oral and Maxillofacial Surgery
DX: M79.602 Pain in left arm (principal)

== ENCOUNTER 2017-11-03 21:12 | Emergency (ER) | payer OTHER ==
[~2017-11-03] VITALS: Ht 172.7 cm; Wt 73.8 kg
[2017-11-03 21:33] VITALS: TEMP 36.8
[2017-11-03] MEDS ORDERED: SODIUM CHLORIDE 0.9% 1000ML 1,000 ML IV STA (22:31)
[2017-11-03 22:39] VITALS: Ht 172.7 cm; Wt 73.8 kg
[2017-11-03 22:53] VITALS: O2SAT 97
[2017-11-03 23:06] LABS: BASO % 0.3 %; BASO ABS # 0.02 K/uL (0-0.2); EOS ABS # 0.12 K/uL (0-0.5); HEMATOCRIT 36.3 % (37-47); HEMOGLOBIN 12.4 g/dL (12.0-16.0); IG# 0.01 K/uL (0.00-0.02); LYMPH % 28.3 %; LYMPH ABS # 1.69 K/uL (1.2-3.4); MEAN CELL VOLUME 101.1 fL (80-100); MEAN CORPUSCULAR HEMOGLOBIN 34.5 pg (25-34); MEAN CORPUSCULAR HGB CONC 34.2 g/dl (32-36); MEAN PLATELET VOLUME 10.8 fL (7.4-10.4); MONO % 11.2 %; MONO ABS # 0.67 K/uL (0.11-0.59); NEUT ABS # 3.46 K/uL (1.4-6.5); PLATELET COUNT 191 K/uL (130-400); RED CELL DISTRIBUTION WIDTH CV 13.9 % (11.5-14.5); RED CELL DISTRIBUTION WIDTH SD 50.2 fL (36.4-46.3); WHITE BLOOD COUNT 5.97 K/uL (4.8-10.8)
--- NOTE | 2017-11-03 23:21 | DIAGNOSTIC IMAGING REPORT ---
CT SCAN OF THE BRAIN WITHOUT IV CONTRAST CLINICAL HISTORY: Left-sided paresthesias. Headache. COMPARISON STUDY: CT of the brain dated 04/28/2014. TECHNIQUE: Unenhanced axial CT scan of the brain is performed from the vertex to the skull base. A dose lowering technique was utilized adhering to the principles of ALARA. CT DOSE: 537.48 mGy.cm FINDINGS: Brain parenchyma: The brain parenchyma is normal in appearance. There is no hemorrhage, mass effect, or evidence of acute territorial ischemia by CT criteria. Vega-white matter is preserved. No extra-axial fluid collection is seen. Ventricles, sulci, cisterns: Normal in configuration. Intracranial vasculature: The visualized intracranial vasculature at the skull base is normal in appearance. Calvarium: Unremarkable. Sinuses and mastoids: The visualized paranasal sinuses are clear. The mastoid air cells are well pneumatized. Orbits: The bony orbits are grossly intact. IMPRESSION: No acute intracranial abnormality. Electronically signed by: Sergei Rodriguez M.D. 11/03/2017 11:20 PM Dictated Date/Time: 11/03/2017 11:17 PM
--- NOTE | 2017-11-03 23:23 | DIAGNOSTIC IMAGING REPORT ---
SINGLE VIEW CHEST CLINICAL HISTORY: Atypical chest pain. FINDINGS: An AP, portable, upright chest radiograph is compared to study dated 05/26/2017 and correlated with chest CT dated 11/05/2015. The cardiomediastinal silhouette is unremarkable. The lungs and pleural spaces are clear. No pneumothorax is seen. The bony thorax is grossly intact. IMPRESSION: No active disease in the chest. Electronically signed by: Sergei Rodriguez M.D. 11/03/2017 11:22 PM Dictated Date/Time: 11/03/2017 11:22 PM
[2017-11-03 23:26] LABS: PTT PATIENT 25.7 SECONDS (21.0-31.0)
[2017-11-03 23:35] LABS: ALBUMIN 3.2 gm/dl (3.4-5.0); CREATININE 0.87 mg/dl (0.60-1.20); TOTAL PROTEIN 6.7 gm/dl (6.4-8.2)
--- NOTE | 2017-11-04 00:38 | EMERGENCY ROOM VISIT NOTE ---
ED Visit Note First contact with patient: 22:19 The patient was seen and examined with Qian Miranda PA-C. I agree with the history, physical and findings. Please see the note for disposition and details.
[2017-11-04] MEDS ORDERED: ZOLP5TAB PO (01:34)
[2017-11-04 01:48] VITALS: BP 107/79; PULSE 57; O2SAT 99
--- NOTE | 2017-11-04 06:14 | EMERGENCY ROOM VISIT NOTE ---
History First contact with patient: 22:19 Chief Complaint: HYPOTENSION Stated Complaint: LOW BP, NUMBNESS IN LEFT SIDE, LOSS OF BALANCE History of Present Illness The patient is a 42 year old female who presents to the Emergency Room with complaints of near syncope, left-sided weakness occasional chest pain that lasted for about an hour occasional palpitations and headache for the past 3 days. Patient states she felt lightheaded last night and checked her blood pressure and was 80/60. Patient is on low-dose metoprolol for PVCs. Patient denies dyspnea, abdominal pain, flulike illness, fever, chills, cough, congestion, localized weakness. No known tick bites. Patient denies history of heart disease. She had a stress test and echo earlier this year by Dr. Zambrano was normal per patient. She sees him for her PVCs. She has had multiple Holter monitors. No recent travel. No history of blood clots. Review of Systems An 10 system review of systems was completed with positives and pertinent negatives listed in the HPI. Past Medical/Surgical History Medical Problems: (1) Diaphragmatic Hernia (2) Diverticulosis Colon (W/O Ment Of Hemorrhage) (3) Esophageal Reflux (4) Lumbar stenosis with neurogenic claudication (5) Polycystic Ovaries (6) Rheumatoid Arthritis Family History Cancer Diabetes mellitus Gallbladder disease Heart disease Hypertension Seizures Social History Smoking Status: Never Smoker Alcohol Use: occasionally Marital Status: Housing Status: lives with family Occupation Status: unemployed Current/Historical Medications Scheduled Etodolac (Etodolac), 1 TAB PO BID Folic Acid (Folvite), 1 MG PO QAM Methotrexate (Methotrexate), 8 TAB PO WK Metoprolol Succinate (Metoprolol Succinate ER), 12.5 MG PO BID Multiple Vitamin (Multivitamin), 1 TAB PO DAILY Omeprazole (Prilosec), 40 MG PO BID Potassium Chloride (K-Tabs), 1 TAB PO QPM Scheduled PRN Ondansetron Hcl (Zofran), 4 MG PO Q6H PRN for Nausea Zolpidem Tartrate (Ambien), 5 MG PO HS PRN for Sleep Physical Exam Vital Signs Date Time Temp Pulse Resp B/P (MAP) Pulse Ox O2 Delivery O2 Flow Rate FiO2 11/04/17 01:48 57 18 107/79 99 Room Air 11/04/17 01:21 58 11/03/17 23:24 56 18 107/71 98 Room Air 11/03/17 22:53 97 Room Air 11/03/17 22:52 98 Room Air 11/03/17 22:48 64 18 95/66 97 Room Air 65 112/74 68 115/73 11/03/17 21:59 64 11/03/17 21:33 36.8 74 18 118/81 98 Room Air Physical Exam VITALS: Vitals are noted on the nurse's note and reviewed by myself. Vital signs stable. GENERAL: Pleasant female, in no acute distress, nondiaphoretic, well-developed well-nourished. SKIN: The skin was without rashes, erythema, edema, or bruising. There is no tenting of the skin. Capillary reflex less than 2 seconds. HEAD: Normocephalic atraumatic. EARS: External auditory canals clear, tympanic membranes pearly leyva without erythema or effusion bilaterally. EYES: Pupils equal round and reactive to light and accommodation. Conjunctivae without injection, sclerae without icterus. Extraocular movements intact. NOSE: Patent, turbinates without inflammation or discharge. MOUTH: Mucous membranes moist. Pharynx without erythema or exudate. Uvula midline. Airway patent. Tongue does not deviate. NECK: Supple without nuchal rigidity. No lymphadenopathy. No thyromegaly. Cervical spine is nontender. No JVD. HEART: Regular rate and rhythm without murmurs gallops or rubs. LUNGS: Clear to auscultation bilaterally without wheezes, rales or rhonchi. No retractions or accessory muscle use. ABDOMEN: Positive bowel sounds x 4. Normal tympanic percussion. Soft, nontender, without masses or organomegaly. Garcia sign negative. No guarding or rebound tenderness. No CVA tenderness MUSCULOSKELETAL: No muscle atrophy, erythema, or edema noted. 5 out of 5 strength throughout NEURO: Patient was alert and oriented to person place and time. Normal sensation to light and sharp touch. No focal neurological deficits. Cranial nerves II through XII grossly intact. No prior drift. Cerebellar exam intact. Medical Decision & Procedures Laboratory Results 11/03/17 22:55 Red Blood Count 3.59, Mean Corpuscular Volume 101.1, Mean Corpuscular Hemoglobin 34.5, Mean Corpuscular Hemoglobin Concent 34.2, Mean Platelet Volume 10.8, Neutrophils (%) (Auto) 58.0, Lymphocytes (%) (Auto) 28.3, Monocytes (%) ( Auto) 11.2, Eosinophils (%) (Auto) 2.0, Basophils (%) (Auto) 0.3, Neutrophils # (Auto) 3.46, Lymphocytes # (Auto) 1.69, Monocytes # (Auto) 0.67, Eosinophils # ( Auto) 0.12, Basophils # (Auto) 0.02 11/03/17 22:55 Test 11/03/17 22:45 11/03/17 22:55 11/03/17 23:02 11/04/17 01:37 Urine Color YELLOW Urine Appearance CLEAR (CLEAR) Urine pH 7.5 (4.5-7.5) Urine Specific [place] 1.020 (1.000-1.030) Urine Protein NEG (NEG) Urine Glucose (UA) NEG (NEG) Urine Ketones NEG (NEG) Urine Occult Blood NEG (NEG) Urine Nitrite NEG (NEG) Urine Bilirubin NEG (NEG) Urine Urobilinogen NEG (NEG) Urine Leukocyte Esterase NEG (NEG) White Blood Count 5.97 K/uL (4.8-10.8) Red Blood Count 3.59 M/uL (4.2-5.4) Hemoglobin 12.4 g/dL (12.0-16.0) Hematocrit 36.3 % (37-47) Mean Corpuscular Volume 101.1 fL (80-100) Mean Corpuscular Hemoglobin 34.5 pg (25-34) Mean Corpuscular Hemoglobin Concent 34.2 g/dl (32-36) Platelet Count 191 K/uL (130-400) Mean Platelet Volume 10.8 fL (7.4-10.4) Neutrophils (%) (Auto) 58.0 % Lymphocytes (%) (Auto) 28.3 % Monocytes (%) (Auto) 11.2 % Eosinophils (%) (Auto) 2.0 % Basophils (%) (Auto) 0.3 % Neutrophils # (Auto) 3.46 K/uL (1.4-6.5) Lymphocytes # (Auto) 1.69 K/uL (1.2-3.4) Monocytes # (Auto) 0.67 K/uL (0.11-0.59) Eosinophils # (Auto) 0.12 K/uL (0-0.5) Basophils # (Auto) 0.02 K/uL (0-0.2) RDW Standard Deviation 50.2 fL (36.4-46.3) RDW Coefficient of Variation 13.9 % (11.5-14.5) Immature Granulocyte % (Auto) 0.2 % Immature Granulocyte # (Auto) 0.01 K/uL (0.00-0.02) Prothrombin Time 10.9 SECONDS (9.0-12.0) Prothromb Time International Ratio 1.0 (0.9-1.1) Activated Partial Thromboplast Time 25.7 SECONDS (21.0-31.0) Partial Thromboplastin Ratio 1.0 Anion Gap 6.0 mmol/L (3-11) Est Creatinine Clear Calc Drug Dose 83.2 ml/min Estimated GFR () 93.9 Estimated GFR (Non- 81.0 BUN/Creatinine Ratio 19.8 (10-20) Calcium Level 8.0 mg/dl (8.5-10.1) Magnesium Level 2.4 mg/dl (1.8-2.4) Total Bilirubin 0.4 mg/dl (0.2-1) Direct Bilirubin 0.1 mg/dl (0-0.2) Aspartate Amino Transf (AST/SGOT) 12 U/L (15-37) Alanine Aminotransferase (ALT/SGPT) 20 U/L (12-78) Alkaline Phosphatase 49 U/L (45-117) Total Creatine Kinase 105 U/L (26-192) Total Protein 6.7 gm/dl (6.4-8.2) Albumin 3.2 gm/dl (3.4-5.0) Lipase 249 U/L (73-393) Thyroid Stimulating Hormone (TSH) 2.500 uIu/ml (0.300-4.500) Human Chorionic Gonadotropin, Qual NEG (NEG) Lyme Disease IgG Antibody NEG (NEG) Lyme Disease IgM Antibody NEG (NEG) Bedside D-Dimer 246 ng/mlFEU (0-450) Bedside Troponin I < 0.030 ng/ml (0-0.045) Medications Administered Medications (Trade) Dose Ordered Sig/Jud Route Start Time Stop Time Status Last Admin Dose Admin Sodium Chloride 1,000 ml @ 999 mls/hr Q1H1M STAT IV 11/03/17 22:31 11/03/17 23:31 DC 11/03/17 23:23 999 MLS/HR ED Course Prior records/ancillary studies reviewed and summarized above. Nursing notes reviewed. Additional history obtained from family. The patient's history was concerning for weakness, low BP, FUNG. Differential diagnosis: Etiologies such as metabolic, infection, hypo/hyperglycemia, electrolyte abnormalities, cardiac sources, intracerebral event, toxicologic, neurologic, as well as others were entertained. Physical examination: As above. ER treatment provided: IV Lock IV fluids On reassessment the patient felt better. Diagnostics interpretation by me: ECG: Normal sinus, normal intervals, no acute ST-T wave changes, rate of 68. Impression normal sinus rhythm interpreted by myself I think arrhythmia is unlikely. EKG shows normal sinus rhythm with no interval abnormalities such as QT prolongation or WPW. There are no findings to suggest Brugada syndrome. Cardiac monitoring in the emergency department reveals no tachycardic or bradycardic dysrhythmia. Hypertrophic cardiomyopathy was considered but there are no clear historical elements pointing toward this. EKG is not suggestive. The QRS voltage is not extremely large and there are no suggestive Q waves. The labs revealed negative d-dimer. Negative troponin 2. Stable H&H. Euthyroid. Negative Lyme's test Imaging studies: Head CT negative for intracranial findings per radiology Chest x-ray with no acute consolidation, pneumothorax free of my interpretation Patient NIH score was negative HEART SCORE: Hx: high/mod/low suspicion: 0 ECG: ST depression/nonspecific changes/normal: 0 Age: Greater than 65/45-64/less than 45: 0 Risk factors: (Hypertension, hyperlipidemia, diabetes, coronary disease, tobacco use, cocaine use): 1 Troponin: Greater than 2 times normal limits/1-2 times normal limits/normal: 0 Total: 1 Exam and history seem consistent with patient having subjective weakness in the left side is resolved that is less than 1 hour in duration with a brief episode of low blood pressure who has had intermittent odd feelings for the past 3 days. Patient was neurovascularly and neurologically intact. She has had an extensive workup with no acute findings noted. Stable H&H. 2 negative troponins. Normal EKG. Negative d-dimer. Negative Lyme's test. She is advised to rest, stay well-hydrated follow-up family care with recommendations of neurology referral in a few days or here in the ER sooner for chest pain, difficulty breathing, localized weakness, worsening signs or symptoms or as needed. By the evaluation outlined above emergent etiologies such as infection, electrolyte abnormalities, cardiac sources, intracerebral event, toxologic, neurologic, abnormalities blood glucose, metabolic, as well as others were deemed relatively unlikely. The pt informed about the findings as listed above. All questions were answered and pleased with the treatment. Return instructions were outlined and the patient was discharged in stable condition. Referral: The patient was referred back to primary care physician for follow-up in 2 to 3 days for a recheck of the current condition. Case reviewed with my attending The chart was completed utilizing [employer] Speech voice recognition software. Grammatical errors, random word insertions, pronoun errors, and incomplete sentences are an occassional consequence of this system due to software limitations, ambient noise, and hardware issues. Any formal questions or concerns about the content, text, or information contained within the body of this dictation should be directly addressed to the physician senior it assistant for clarification. Medical Decision as above Medication Reconcilliation Current Medication List: was personally reviewed by me Blood Pressure Screening Patient's blood pressure: Normal blood pressure Impression Primary Impression: Near syncope Additional Impressions: Tingling Chest pain Departure Information Dispostion Home / Self-Care Condition GOOD Forms WORK / SCHOOL INSTRUCTIONS, HOME CARE DOCUMENTATION FORM, IMPORTANT VISIT INFORMATION Patient Instructions My [facility] Additional Instructions Ibuprofen(Motrin, Advil) may be used for fever or pain. Use 600mg every six hours as needed. Take with food. Avoid using more than 2400mg in a 24 hour period. Do not use 2400mg per day for more than three consecutive days without physician direction. Prolonged inappropriate use can lead to stomach upset or ulcers. (AND/OR) Acetaminophen(Tylenol) may be used for fever or pain. Use 1000mg every six hours as needed. Avoid using more than 3000mg in a 24 hour period. Rest and drink plenty of fluids as tolerated. Continue current medications. Return to the ER immediately for worsening or persistent passing out, abdominal pain, vomiting, fevers, chest pains, difficulty breathing, worsening of your condition, or as needed. Follow up with your primary physician in 2-3 days for a recheck of your current condition. Recommend neurology referral for the family care doctor. Problem Qualifiers
== END 2017-11-04 02:18 | disposition home or self-care (01) ==
LOC: C.EDB 21:14
DX: R55 Syncope and collapse (principal); R07.9 Chest pain, unspecified; I49.3 Ventricular premature depolarization; K21.9 Gastro-esophageal reflux disease without esophagitis; M06.9 Rheumatoid arthritis, unspecified; E28.2 Polycystic ovarian syndrome; M48.062 Spinal stenosis, lumbar region with neurogenic claudication; Z80.9 Family history of malignant neoplasm, unspecified; Z83.3 Family history of diabetes mellitus; Z83.79 Family history of other diseases of the digestive system; Z82.49 Family history of ischemic heart disease and other diseases of the circulatory system; Z82.0 Family history of epilepsy and other diseases of the nervous system; Z79.899 Other long term (current) drug therapy